=== PATIENT | male | born 1990 | race American Indian/Alaskan Native ===

== ENCOUNTER 2017-04-30 14:34 | Emergency (ER) | payer OTHER, BC ==
[2017-04-30 14:42] VITALS: BP 127/76
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
[2017-04-30] MEDS ORDERED: TORADOL IM ONE (18:03)
[2017-04-30] MEDS ORDERED: TORADOL ONE (18:15)
== END 2017-04-30 18:29 | disposition home or self-care (01) ==
LOC: ED 14:34
DX: S16.1XXA Strain of muscle, fascia and tendon at neck level, initial encounter (principal); V49.49XA Driver injured in collision with other motor vehicles in traffic accident, initial encounter; X58.XXXA Exposure to other specified factors, initial encounter; Y93.89 Activity, other specified; Y92.89 Other specified places as the place of occurrence of the external cause; Y99.8 Other external cause status
CPT/HCPCS: 72050; 96372; 99283; J1885